=== PATIENT | female | born 1955 | race Caucasian/White ===

== ENCOUNTER 2020-01-17 14:45 | Emergency (ER) | payer OTHER, MEDICAID ==
[~2020-01-17] VITALS: Ht 167.6 cm; Wt 96.6 kg
[2020-01-17 14:46] VITALS: BP 136/68
--- NOTE | 2020-01-17 15:03 | NUR ---
64 Y/O FEMALE PRESENTS WITH SOB X2 DAYS DUE TO RUNNING OUT OF LONG LASTING INHALER + NEBULIZER. C/O RIGHT LUNG PAIN X1 WEEK. PT STATES SHE HAS HX OF ASTHMA AND CHRONIC BRONCHITIS AND SHE STATES SHE CAN FEEL HER ASTHMA "ACTING UP" RESP EVEN AND UNLABORED. LUNG SOUNDS CLEAR IN BILAT LOBES. SP02 100% RA. SKIN COOL/DRY. DENIES ANY N/V/D, CHILLS/ FEVER. PMH: ASTHMA, CHRONIC BRONCHITIS ALLERGIES: PENICILLINS
--- NOTE | 2020-01-17 15:10 | NUR ---
XRAY AT BEDSIDE
[2020-01-17 15:43] VITALS: BP 136/68
--- NOTE | 2020-01-17 15:43 | NUR ---
Patient discharged with v/s stable. Written and verbal after care instructions given and explained. Patient alert, oriented and verbalized understanding of instructions. Ambulatory with steady gait. All questions addressed prior to discharge. ID band removed. Patient advised to follow up with PMD. Rx of PREDNISONE,ALBUTEROL SULFATE, ALBUTEROL, ADVAIR DISKUS given. Patient educated on indication of medication including possible reaction and side effects. Opportunity to ask questions provided and answered.
== END 2020-01-17 15:43 | disposition home or self-care (01) ==
LOC: MED 14:45
DX: J45.909 Unspecified asthma, uncomplicated (principal); I10 Essential (primary) hypertension; Z76.0 Encounter for issue of repeat prescription; Z88.0 Allergy status to penicillin
CPT/HCPCS: 71045; 99283; Q0092

== ENCOUNTER 2021-01-08 20:10 | Emergency (ER) | payer OTHER, MEDICAID ==
[~2021-01-08] VITALS: Ht 167.6 cm; Wt 95.3 kg
[2021-01-08 20:17] VITALS: BP 120/74
--- NOTE | 2021-01-08 20:17 | NUR ---
TO BED AMBULATORY
--- NOTE | 2021-01-08 20:28 | NUR ---
XRAY AT BEDSIDE.
--- NOTE | 2021-01-08 20:31 | NUR ---
ERMD AT BEDSIDE ASSESSING.
--- NOTE | 2021-01-08 20:48 | NUR ---
PATIENT BIB SELF FOR C/O 07/10 LEFT WRIST PAIN S/P FALL. A&O X4. PATIENT STATES "I HEARD IT POP AFTER I FELL." PATIENT STATES THE PAIN IS SHARP AND THROBBING AND IT RADIATES UP TO HER LEFT ELBOW. CMS INTACT. CAP REFILL <3 SECONCS. ROM LIMITED. BILATERAL RADIAL PULSES STRONG AND EQUAL. SKIN IS WARM, DRY AND INTACT. SWELLING NOTED TO THE LEFT WRIST. PATIENT DENIES HITTING HER HEAD. PATIENT DENIES CP, SOB, FEVER, CHILLS. BED IS LOCKED AND IN LOWEST POSITION, BED RAIL X1. SEE COMPLETE ASSESSMENT FOR FURTHER DETAILS. ALLERGIES: PENICILLINS.
[2021-01-08] MEDS ORDERED: KETOROLAC 30 MG/ML VIAL IM ONE (20:55)
--- NOTE | 2021-01-08 22:49 | NUR ---
ERMD REVIEWING XRAY RESULTS AT BEDSIDE.
[2021-01-08] MEDS ORDERED: ACET-8386 PO (22:54)
[2021-01-08] MEDS ORDERED: NAPR-54 PO (22:54)
[2021-01-08 23:22] VITALS: BP 128/72
--- NOTE | 2021-01-08 23:22 | NUR ---
Patient discharged with v/s stable. Written and verbal after care instructions given and explained. Patient alert, oriented and verbalized understanding of instructions. Ambulatory with steady gait. All questions addressed prior to discharge. ID band removed. Patient advised to follow up with PMD. Rx of HYDROCODONE/ACETAMINOPHEN, NAPROXEN given. Patient educated on indication of medication including possible reaction and side effects. Opportunity to ask questions provided and answered.
--- NOTE | 2021-01-08 23:26 | NUR ---
PROVIDED PT WITH POSTIOR LONG ARM SPLINT ON LEFT SIDE. CHECKED PMSC'S BEFORE AND AFTER WITHOUT INCIDENT. PLACED PT IN SHOULDER SLING AFTER AND ADJUSTED TO A POSITION OF COMFORT.
== END 2021-01-08 23:22 | disposition home or self-care (01) ==
LOC: MED 20:10
DX: S60.212A Contusion of left wrist, initial encounter (principal); S50.02XA Contusion of left elbow, initial encounter; J45.909 Unspecified asthma, uncomplicated; I10 Essential (primary) hypertension; Z88.0 Allergy status to penicillin; W17.89XA Other fall from one level to another, initial encounter; Y93.89 Activity, other specified; Y92.89 Other specified places as the place of occurrence of the external cause; Y99.8 Other external cause status
CPT/HCPCS: 29505; 73070; 73110; 96372; 99284; J1885